=== PATIENT | female | born 1970 | race Hispanic/Latino ===

== ENCOUNTER → 2023-04-06 08:52 | Outpatient (REF) | payer OTHER, SELFPAY ==
[2023-04-06 11:16] LABS: Free T4 0.79 ng/dl (0.78-2.19)
== END ==
LOC: CLINIC 08:52
PROVIDERS: ATTENDING PHYSICIAN Nurse Practitioner Adult Health
DX: R94.6 Abnormal results of thyroid function studies (principal); M25.50 Pain in unspecified joint
CPT/HCPCS: 36415; 84439; 84443; 86140

== ENCOUNTER → 2023-07-09 08:10 | Outpatient (REF) | payer OTHER, SELFPAY ==
[2023-07-09 10:42] LABS: Free T4 0.85 ng/dl (0.78-2.19)
[2023-07-10 13:56] LABS: Thyroid Peroxidase Ab (TPO) 1.5 IU/mL (0.0-9.0)
== END ==
LOC: REG 08:10
PROVIDERS: ATTENDING PHYSICIAN Nurse Practitioner Adult Health
DX: R94.6 Abnormal results of thyroid function studies (principal)
CPT/HCPCS: 36415; 84439; 84443; 86376

== ENCOUNTER → 2023-10-01 09:58 | Outpatient (REF) | payer OTHER, SELFPAY ==
[2023-10-01 12:13] LABS: TSH 8.16 uIU/ml (0.47-4.68)
== END ==
LOC: REG 09:58
PROVIDERS: ATTENDING PHYSICIAN Nurse Practitioner Adult Health
DX: R94.6 Abnormal results of thyroid function studies (principal)
CPT/HCPCS: 36415; 84439; 84443

== ENCOUNTER → 2024-01-14 08:06 | Outpatient (REF) | payer OTHER, SELFPAY ==
[2024-01-14 10:17] LABS: Free T4 0.69 ng/dl (0.78-2.19)
== END ==
LOC: REG 08:06
PROVIDERS: ATTENDING PHYSICIAN Nurse Practitioner Adult Health
DX: R94.6 Abnormal results of thyroid function studies (principal)
CPT/HCPCS: 36415; 84439; 84443

== ENCOUNTER → 2024-04-14 08:44 | Outpatient (REF) | payer OTHER, SELFPAY ==
[2024-04-14 10:36] LABS: Free T4 0.93 ng/dl (0.78-2.19)
== END ==
LOC: CLINIC 08:44
PROVIDERS: ATTENDING PHYSICIAN Nurse Practitioner Adult Health
DX: E03.9 Hypothyroidism, unspecified (principal)
CPT/HCPCS: 36415; 84439; 84443

== ENCOUNTER → 2024-07-28 09:16 | Outpatient (REF) | payer OTHER, SELFPAY ==
[2024-07-28 11:27] LABS: TSH 9.45 uIU/ml (0.47-4.68)
== END ==
LOC: REG 09:16
PROVIDERS: ATTENDING PHYSICIAN Nurse Practitioner Adult Health
DX: E03.9 Hypothyroidism, unspecified (principal)
CPT/HCPCS: 84439; 84443

== ENCOUNTER → 2024-11-03 08:22 | Outpatient (REF) | payer OTHER, SELFPAY ==
[2024-11-03 10:49] LABS: TSH 13.90 uIU/ml (0.47-4.68)
== END ==
LOC: CLINIC 08:22
PROVIDERS: ATTENDING PHYSICIAN Nurse Practitioner Adult Health
DX: E03.9 Hypothyroidism, unspecified (principal)
CPT/HCPCS: 36415; 84439; 84443

== ENCOUNTER → 2025-01-21 15:43 | Outpatient (REF) | payer OTHER, SELFPAY ==
[2025-01-21 17:34] LABS: TSH 6.02 uIU/ml (0.47-4.68)
== END ==
LOC: CLINIC 15:43
PROVIDERS: ATTENDING PHYSICIAN Nurse Practitioner Adult Health
DX: E03.9 Hypothyroidism, unspecified (principal)
CPT/HCPCS: 36415; 84439; 84443